=== PATIENT | female | born 1990 | race Two or more races ===

== ENCOUNTER 2019-12-27 13:33 | Emergency (ER) | payer SELFPAY ==
[~2019-12-27] VITALS: Ht 175.3 cm; Wt 132.4 kg
[2019-12-27 14:06] VITALS: BP 116/66
[2019-12-27] MEDS ORDERED: IBUPROFEN 800 MG TAB PO ONE (14:15)
== END 2019-12-27 14:48 | disposition home or self-care (01) ==
LOC: ER 13:33
DX: S93.402A Sprain of unspecified ligament of left ankle, initial encounter (principal); X50.1XXA Overexertion from prolonged static or awkward postures, initial encounter; Y93.89 Activity, other specified; Y99.8 Other external cause status; Y92.89 Other specified places as the place of occurrence of the external cause
CPT/HCPCS: 73610